=== PATIENT | female | born 1990 | race Caucasian/White ===

== ENCOUNTER 2017-12-18 11:02 | Emergency (ER) | payer OTHER ==
[2017-12-18] MEDS ORDERED: Sodium Chloride 0.9% 1,000 ML IV SCH (13:30)
--- NOTE | 2017-12-18 14:28 | EDM.PDOC ---
ED HPI GENERAL MEDICAL PROBLEM - General Chief Complaint: ENT Problem Stated Complaint: FLU? Time Seen by Provider: 12/18/17 14:22 Source of Information: Reports: Patient, Family History Limitations: Reports: No Limitations - History of Present Illness INITIAL COMMENTS - FREE TEXT/NARRATIVE: pt arrived with grandma and states she has a sore throat and has lost about 10 lbs in the last 2 weeks. She has not been vomiting but her intake has been poor. She has a history of depression and her mother has s concern about her depression and poassible bipolar. She denies dealing with sig depression other than she is ill at this time. She definitely does not feel suicidal. She works in [employer] and lives in [place]. She does spend some time with her grandmother in the [place]. Onset: Gradual Duration: Day(s): Location: Reports: Neck, Abdomen Associated Symptoms: Reports: Loss of Appetite, Other ( sore throat. ) Throat Pain Score (Numeric/FACES): 7 - Related Data Allergies Allergy/AdvReac Type Severity Reaction Status Date / Time No Known Allergies Allergy Verified 12/18/17 12:07 Home Meds: Home Meds Cholecalciferol (Vitamin D3) [Vitamin D3] 1 tab PO DAILY 12/18/17 [History] Past Medical History Musculoskeletal History: Reports: Fracture Social & Family History - Tobacco Use Smoking Status *Q: Never Smoker - Recreational Drug Use Recreational Drug Use: No ED ROS ENT - Review of Systems Review Of Systems: See Below Constitutional: Reports: Decreased Appetite, Weight Loss HEENT: Reports: Throat Pain Respiratory: Reports: No Symptoms Cardiovascular: Reports: No Symptoms Endocrine: Reports: No Symptoms GI/Abdominal: Reports: Decreased Appetite : Reports: No Symptoms Musculoskeletal: Reports: No Symptoms Skin: Reports: No Symptoms ED EXAM, ENT - Physical Exam Exam: See Below Text/Narrative:: pt arrived with a sore throat and a 10 lb wt loss. She does seem very emotional today. crying easily. Her mother is concerned that she is bipolar. Exam Limited By: No Limitations General Appearance: Alert, Mild Distress, Other (pt does have a fairly flat affect. ) Ears: Normal TMs Nose: Normal Inspection Mouth/Throat: Throat Pain Head: Atraumatic Neck: Lymphadenopathy (R), Lymphadenopathy (L) Respiratory/Chest: No Respiratory Distress Cardiovascular: Regular Rate, Rhythm GI/Abdominal: Soft, Non-Tender (Female) Exam: Deferred Rectal (Female) Exam: Deferred Back: Normal Inspection Extremities: Normal Inspection Neurological: Alert, Oriented Course - Vital Signs Last Recorded V/S: Last Vital Signs Temp 36.2 C 12/18/17 12:37 Pulse 79 12/18/17 12:37 Resp 12 12/18/17 12:37 BP 101/71 12/18/17 12:37 Pulse Ox 98 12/18/17 12:37 - Orders/Labs/Meds Orders: Active Orders 24 hr Category Date Time Status CULTURE STREP A CONFIRMATION [] Stat Lab 12/18/17 13:15 Results CULTURE URINE [] Stat Lab 12/18/17 13:33 Received STREP SCRN A RAPID W CULT CONF [] Stat Lab 12/18/17 13:15 Results Sodium Chloride 0.9% [Normal Saline] 1,000 ml Med 12/18/17 13:30 Active IV ASDIRECTED Medication Orders Sodium Chloride (Normal Saline) 1,000 mls @ 999 mls/hr IV ASDIRECTED TODD Last Admin: 12/18/17 13:57 Dose: 999 mls/hr Labs: Laboratory Tests 12/18/17 12/18/17 12/18/17 Range/Units 12:21 12:21 12:21 WBC 4.5 (4.5-11.0) K/uL RBC 5.64 H (3.30-5.50) M/uL Hgb 15.6 H (12.0-15.0) g/dL Hct 47.8 (36.0-48.0) % MCV 85 (80-98) fL MCH 28 (27-31) pg MCHC 33 (32-36) % Plt Count 205 (150-400) K/uL Neut % (Auto) 65 (36-66) % Lymph % (Auto) 17 L (24-44) % Henderson % (Auto) 17 H (2-6) % Eos % (Auto) 1 L (2-4) % Baso % (Auto) 0 (0-1) % Sodium 141 (140-148) mmol/L Potassium 4.0 (3.6-5.2) mmol/L Chloride 103 (100-108) mmol/L Carbon Dioxide 27 (21-32) mmol/L Anion Gap 11.0 (5.0-14.0) mmol/L BUN 13 (7-18) mg/dL Creatinine 1.0 (0.6-1.0) mg/dL Est Cr Clr Drug Dosing 74.26 mL/min Estimated GFR (MDRD) > 60 (>60) Glucose 87 (74-106) mg/dL Calcium 9.0 (8.5-10.1) mg/dL Total Bilirubin 0.3 (0.2-1.0) mg/dL AST 23 (15-37) U/L ALT 21 (12-78) U/L Alkaline Phosphatase 48 (46-116) U/L C-Reactive Protein 0.91 H (0.0-0.3) mg/dL Total Protein 7.5 (6.4-8.2) g/dL Albumin 3.9 (3.4-5.0) g/dL Globulin 3.6 H (2.3-3.5) g/dL Albumin/Globulin Ratio 1.1 L (1.2-2.2) Urine Color Urine Appearance Urine pH (4.5-8.0) Ur Specific [facility] (1.008-1.030) Urine Protein (NEGATIVE) mg/dL Urine Glucose (UA) (NEGATIVE) mg/dL Urine Ketones (NEGATIVE) mg/dL Urine Occult Blood (NEGATIVE) Urine Nitrite (NEGATIVE) Urine Bilirubin (NEGATIVE) Urine Urobilinogen (NORMAL) mg/dL Ur Leukocyte Esterase (NEGATIVE) Urine RBC (0-5) Urine WBC (0-5) Ur Epithelial Cells Amorphous Sediment Urine Bacteria Urine Mucus Monoscreen (NEGATIVE) 12/18/17 12/18/17 Range/Units 12:59 13:22 WBC (4.5-11.0) K/uL RBC (3.30-5.50) M/uL Hgb (12.0-15.0) g/dL Hct (36.0-48.0) % MCV (80-98) fL MCH (27-31) pg MCHC (32-36) % Plt Count (150-400) K/uL Neut % (Auto) (36-66) % Lymph % (Auto) (24-44) % Henderson % (Auto) (2-6) % Eos % (Auto) (2-4) % Baso % (Auto) (0-1) % Sodium (140-148) mmol/L Potassium (3.6-5.2) mmol/L Chloride (100-108) mmol/L Carbon Dioxide (21-32) mmol/L Anion Gap (5.0-14.0) mmol/L BUN (7-18) mg/dL Creatinine (0.6-1.0) mg/dL Est Cr Clr Drug Dosing mL/min Estimated GFR (MDRD) (>60) Glucose (74-106) mg/dL Calcium (8.5-10.1) mg/dL Total Bilirubin (0.2-1.0) mg/dL AST (15-37) U/L ALT (12-78) U/L Alkaline Phosphatase (46-116) U/L C-Reactive Protein (0.0-0.3) mg/dL Total Protein (6.4-8.2) g/dL Albumin (3.4-5.0) g/dL Globulin (2.3-3.5) g/dL Albumin/Globulin Ratio (1.2-2.2) Urine Color Yellow Urine Appearance Cloudy Urine pH 5.0 (4.5-8.0) Ur Specific [place] 1.025 (1.008-1.030) Urine Protein 500 H (NEGATIVE) mg/dL Urine Glucose (UA) Normal (NEGATIVE) mg/dL Urine Ketones 50 H (NEGATIVE) mg/dL Urine Occult Blood Moderate (NEGATIVE) Urine Nitrite Negative (NEGATIVE) Urine Bilirubin Negative (NEGATIVE) Urine Urobilinogen 1 (NORMAL) mg/dL Ur Leukocyte Esterase Negative (NEGATIVE) Urine RBC 5-10 H (0-5) Urine WBC 0-5 (0-5) Ur Epithelial Cells Many Amorphous Sediment Few Urine Bacteria Many Urine Mucus Moderate Monoscreen Negative (NEGATIVE) Meds: Medications Generic Name Dose Route Start Last Admin Trade Name Freq PRN Reason Stop Dose Admin Sodium Chloride 1,000 mls @ 999 mls/hr 12/18/17 13:30 12/18/17 13:57 Normal Saline IV 999 mls/hr ASDIRECTED [facility] Administration - Re-Assessments/Exams Free Text/Narrative Re-Assessment/Exam: 12/18/17 15:31 strept neg. Electrolytes showed dehydration influa and b were neg. Pt was hydrated with a liter of fluid, she ate a bowl of soup while she was here. Her mother is concerned that she is bipolar. We talked about the fact that she seemed a little emotional today. She felt like it was because she didn,t feel well. I advised her if she was having alot of ups and downs that she shold have an evaluation. Departure - Departure Time of Disposition: 15:18 Disposition: Home, Self-Care 01 Condition: Fair Clinical Impression: Dehydration, Viral illness - Discharge Information Referrals: PCP,None [Primary Care Provider] - Forms: ED Department Discharge Care Plan Goals: Tylenol and motrin for temp and body aches, push fluids, No work tomorrow, If pt continues to feel emotional she should see some one for evaluation. - My Orders Last 24 Hours: My Active Orders 12/18/17 13:15 CULTURE STREP A CONFIRMATION [RM] Stat STREP SCRN A RAPID W CULT CONF [RM] Stat 12/18/17 13:30 Sodium Chloride 0.9% [Normal Saline] 1,000 ml IV ASDIRECTED 12/18/17 13:33 CULTURE URINE [RM] Stat - Assessment/Plan Last 24 Hours: My Active Orders 12/18/17 13:15 CULTURE STREP A CONFIRMATION [RM] Stat STREP SCRN A RAPID W CULT CONF [RM] Stat 12/18/17 13:30 Sodium Chloride 0.9% [Normal Saline] 1,000 ml IV ASDIRECTED 12/18/17 13:33 CULTURE URINE [RM] Stat
== END 2017-12-18 15:49 | disposition home or self-care (01) ==
LOC: JP.ED 11:02
DX: B34.9 Viral infection, unspecified (principal); E86.0 Dehydration
CPT/HCPCS: 36415; 80053; 81001; 85025; 86140; 86308; 87081; 87086; 87430; 87804; 96360; 99284; J7040; J7030